=== PATIENT | male | born 1965 | race Caucasian/White ===

== ENCOUNTER → 2016-03-28 | Outpatient (CLI) | payer BC ==
[~2016-03-28] MED LIST: MULT-506 PO
[2016-03-28 12:25] LABS: BASO % 0.3 %; BASO ABS # 0.02 K/uL (0-0.2); COMPLETE YES; EOS % 0.8 %; HEMATOCRIT 40.6 % (42-52); IG% 0.1 %; LYMPH % 21.7 %; LYMPH ABS # 1.58 K/uL (1.2-3.4); MEAN CELL VOLUME 85.1 fL (80-100); MEAN CORPUSCULAR HEMOGLOBIN 29.1 pg (25-34); MEAN CORPUSCULAR HGB CONC 34.2 g/dl (32-36); MEAN PLATELET VOLUME 11.2 fL (7.4-10.4); MONO % 8.9 %; NEUT % 68.2 %; PLATELET COUNT 259 K/uL (130-400); RED BLOOD COUNT 4.77 M/uL (4.7-6.1); WHITE BLOOD COUNT 7.27 K/uL (4.8-10.8)
[2016-03-28 12:45] LABS: ALKALINE PHOSPHATASE 99 U/L (45-117); ALT/SGPT 23 U/L (12-78); AST/SGOT 12 U/L (15-37); BLOOD UREA NITROGEN 22 mg/dl (7-18); BUN/CREATININE RATIO 26.3 (10-20); CALCIUM 8.8 mg/dl (8.5-10.1); CARBON DIOXIDE 26 mmol/L (21-32); CHLORIDE 106 mmol/L (98-107); CREATININE 0.82 mg/dl (0.60-1.40); GLUCOSE 98 mg/dl (70-99); POTASSIUM 4.2 mmol/L (3.5-5.1); SODIUM 141 mmol/L (136-145)
[2016-03-28 12:54] LABS: ALB/GLOB RATIO 1.1 (0.9-2); THYROID STIMULATING HORMONE 0.898 uIu/ml (0.300-4.500)
[2016-04-03 22:20] LABS: ESTRADIOL 16 pg/mL
== END | disposition home or self-care (01) ==
LOC: C.LABBFT 07:40
PROVIDERS: ATTEND Internal Medicine
DX: N64.4 Mastodynia (principal)

== ENCOUNTER → 2016-04-02 | Outpatient (CLI) | payer BC | END | disposition home or self-care (01) | LOC: C.LABBFT 07:41 | PROVIDERS: ATTEND Internal Medicine | DX: N64.4 Mastodynia (principal) ==

== ENCOUNTER → 2016-04-10 | Outpatient (CLI) | payer BC ==
--- NOTE | 2016-04-10 12:37 | MAMMOGRAPHY REPORT ---
MALE BILATERAL DIGITAL DIAGNOSTIC MAMMOGRAM WITH CAD AND TARGETED RIGHT ULTRASOUND: 04/10/2016 CLINICAL HISTORY: The patient reports pain underneath the right nipple for approximately one month. He denies any palpable lumps. TECHNIQUE: Current study was also evaluated with a Computer Aided Detection (CAD) system. COMPARISON: No prior exams were available for comparison. BREAST COMPOSITION: The tissue of both breasts is prominently fatty. FINDINGS: A triangle marker banegas the site of focal pain in the right subareolar breast. There is flame-shaped fibroglandular tissue seen within the right subareolar breast, consistent with benign g ynecomastia. A small amount of fibroglandular tissue is also seen within the left subareolar breast . There are no suspicious masses, calcifications, or areas of architectural distortion noted in eit her breast. Targeted ultrasound was performed of the right subareolar breast in the region of the focal pain poi nted out by the patient. There is hypoechoic tissue seen within the right subareolar breast, which has the sonographic appearance of gynecomastia. No suspicious mass or other suspicious sonographic abnormalities evident. IMPRESSION: ACR BI-RADS CATEGORY 2: BENIGN, TARGETED ULTRASOUND ACR BI-RADS CATEGORY 2: BENIGN Benign gynecomastia bilaterally, right greater than left, which corresponds with the focal pain poin jean-paul out by the patient in the right subareolar breast. There is no mammographic or targeted sonogra phic evidence of malignancy. Recommend clinical follow-up. The patient has been verbally notified of the results. Approximately 10% of breast cancers are not detected with mammography. A negative mammographic repor t should not delay biopsy if a clinically suggestive mass is present. Leny Aguirre M.D. ah/:04/10/2016 10:05:21 Testing Engineer: Carito YIP)(Alex), [facility] letter sent: Normal 02/11 BI-RADS Code: ACR BI-RADS Category 2: Benign Ultrasound BI-RADS: ACR BI-RADS Category 2: Benign
== END | disposition home or self-care (01) ==
LOC: C.MAMM 09:26
PROVIDERS: ATTEND Internal Medicine
DX: N62 Hypertrophy of breast (principal)

== ENCOUNTER → 2016-04-17 | Outpatient (CLI) | payer BC ==
--- NOTE | 2016-04-17 12:31 | DIAGNOSTIC IMAGING REPORT ---
(TESTICULAR) SCROTUM-CONT CLINICAL HISTORY: E29.1 Low [id number] COMPARISON STUDY: 01/03/2015 FINDINGS: The right testis measures 41 x 20 x 26 mm. The left testis measures 42 x 21 x 20 mm. There is no evidence of testicular torsion. No intratesticular masses are visualized. There is a 14 mm cyst adjacent to the right testis unchanged the prior study. There are a few left-sided scrotoliths. IMPRESSION: 1. No evidence of intratesticular mass 2. No significant change from the preceding study Electronically signed by: Huan Watson M.D. 04/17/2016 12:29 PM Dictated Date/Time: 04/17/2016 12:28 PM
== END | disposition home or self-care (01) ==
LOC: C.ULTR 12:01
PROVIDERS: ATTEND Internal Medicine
DX: E29.1 Testicular hypofunction (principal)

== ENCOUNTER → 2016-05-30 | Outpatient (CLI) | payer BC ==
[2016-05-30 12:33] LABS: BASO % 0.5 %; BASO ABS # 0.03 K/uL (0-0.2); COMPLETE YES; EOS % 1.4 %; HEMATOCRIT 41.4 % (42-52); IG% 0.2 %; LYMPH % 24.2 %; LYMPH ABS # 1.51 K/uL (1.2-3.4); MEAN CELL VOLUME 85.4 fL (80-100); MEAN CORPUSCULAR HEMOGLOBIN 29.1 pg (25-34); MEAN CORPUSCULAR HGB CONC 34.1 g/dl (32-36); MEAN PLATELET VOLUME 10.7 fL (7.4-10.4); MONO % 7.9 %; NEUT % 65.8 %; PLATELET COUNT 250 K/uL (130-400); RED BLOOD COUNT 4.85 M/uL (4.7-6.1); WHITE BLOOD COUNT 6.24 K/uL (4.8-10.8)
[2016-05-30 12:49] LABS: PROLACTIN 196.58 ng/mL
[2016-05-30 13:08] LABS: FERRITIN 173.4 ng/ml (8.0-388.0)
[2016-06-04 21:29] LABS: TESTOSTERONE,TOTAL 39 ng/dL (250-1100)
== END | disposition home or self-care (01) ==
LOC: C.LABBFT 07:46
PROVIDERS: ATTEND Physician Assistant
DX: D64.9 Anemia, unspecified (principal); N62 Hypertrophy of breast

== ENCOUNTER → 2016-06-13 | Outpatient (CLI) | payer BC ==
[~2016-06-13] MED LIST changes: +GADAVIST IV PRN
--- NOTE | 2016-06-13 11:53 | DIAGNOSTIC IMAGING REPORT ---
MRI OF THE PITUITARY WITHOUT AND WITH GADOLINIUM CLINICAL HISTORY: LOW TESTOSTERONE fatigue. COMPARISON STUDY: No previous studies for comparison. FINDINGS: Dynamic pre and postcontrast coronal imaging was performed to the pituitary. These were supplemented with pre and post gadolinium sagittal T1-weighted images, as well as an axial 3-D FIESTA scan. The patient was administered 11 cc of intravenous Gadavist. The pituitary gland is of normal size. No chiasmatic masses are visualized. The hypothalamic masses are visualized. This territory gland enhances in a normal fashion. No sellar masses are visualized. There is a left maxillary sinus retention cyst. IMPRESSION: 1. Normal pituitary gland. No sellar, infundibular or hypothalamic masses are visualized. No chiasmatic masses are visualized. Electronically signed by: Huan Watson M.D. 06/13/2016 11:52 AM Dictated Date/Time: 06/13/2016 11:48 AM
== END | disposition home or self-care (01) ==
LOC: C.MRI 10:30
PROVIDERS: ATTEND Physician Assistant
DX: E29.1 Testicular hypofunction (principal)

== ENCOUNTER → 2016-08-14 | Outpatient (CLI) | payer BC ==
[~2016-08-14] MED LIST changes: -GADAVIST IV PRN
[2016-08-18 19:38] LABS: ILGF1 Z SCORE MALE 0.8 SD (-2.0 - +2.0)
== END | disposition home or self-care (01) ==
LOC: C.LABBFT 08:01
PROVIDERS: ATTEND Internal Medicine Endocrinology, Diabetes & Metabolism
DX: N62 Hypertrophy of breast (principal); E23.0 Hypopituitarism; E22.9 Hyperfunction of pituitary gland, unspecified

== ENCOUNTER → 2016-11-21 | Outpatient (CLI) | payer BC | END | disposition home or self-care (01) | LOC: C.LABBFT 07:40 | PROVIDERS: ATTEND Internal Medicine Endocrinology, Diabetes & Metabolism | DX: E23.0 Hypopituitarism (principal); E22.9 Hyperfunction of pituitary gland, unspecified ==

== ENCOUNTER → 2017-06-18 | Outpatient (CLI) | payer BC | END | disposition home or self-care (01) | LOC: C.LAB 05:51 | PROVIDERS: ATTEND Internal Medicine Endocrinology, Diabetes & Metabolism | DX: E22.9 Hyperfunction of pituitary gland, unspecified (principal); E23.0 Hypopituitarism ==

== ENCOUNTER → 2017-06-19 | Outpatient (CLI) | payer BC ==
[~2017-06-19] MED LIST changes: +GADAVIST IV PRN
--- NOTE | 2017-06-19 17:54 | DIAGNOSTIC IMAGING REPORT ---
BRAIN COMBO FOR PITUITARY CLINICAL HISTORY: 51 years-old Male presenting with headaches, low testosterone levels, low energy, abnormal hair growth, hypogonadotropic, elevated prolactin. TECHNIQUE: Multisequence, multiplanar MR imaging of the brain was performed before and after the administration of intravenous contrast. Examination was tailored for a dedicated pituitary evaluation. IV contrast: 9.5 mL of Gadavist. COMPARISON: 06/13/2016. FINDINGS: The pituitary gland is normal in size and appearance on precontrast imaging. Dynamic postcontrast imaging demonstrates no focal hyper or hypoenhancement. No evidence of pituitary mass. Ventricles and sulci normal in size. Brain parenchyma normal in appearance with preserved aguayo-white differentiation. No mass effect or midline shift. No restricted diffusion to suggest acute ischemia. No hemorrhage. No extra-axial fluid collection. T2 skull base flow voids preserved. No abnormal parenchymal enhancement. Bone marrow signal intensity within the calvarium within normal limits. Mucosal thickening noted in the maxillary sinuses. IMPRESSION: 1. No evidence of a pituitary mass. No acute intracranial pathology. No abnormal enhancement. Electronically signed by: Reji Amezcua M.D. 06/19/2017 5:53 PM Dictated Date/Time: 06/19/2017 5:46 PM
== END | disposition home or self-care (01) ==
LOC: C.MRI 15:45
PROVIDERS: ATTEND Internal Medicine Endocrinology, Diabetes & Metabolism
DX: E22.9 Hyperfunction of pituitary gland, unspecified (principal); E23.0 Hypopituitarism